=== PATIENT | male | born 1945 | race Caucasian/White ===

== ENCOUNTER 2023-01-10 07:47 | Outpatient (CLI) | payer MEDICARE ==
--- NOTE | 2023-01-10 08:39 | Ultrasound Report ---
PROCEDURE: Aorta Screening INDICATIONS: SCREENING FOR LUNG CA, SMOKING TECHNIQUE: Real time scanning was performed of the aorta and iliac arteries, with image documentatio n. COMPARISON: None. FINDINGS: Aorta: Proximal aortic diameter measures 2.7 x 2.4 cm. Mid-aorta measures 2.0 x 1.9 cm. Distal aortic diameter is 2.2 x 2.1 cm. Calcified plaque is noted throughout the infrarenal abdominal aorta . Iliac arteries: Right common iliac artery measures 1.4 x 1.4 cm. Left common iliac artery measures 1.5 x 1.3 cm. IMPRESSION: 1. No evidence for abdominal aortic aneurysm. 2. Calcified plaque throughout the infrarenal abdominal aorta. Recommended intervals for follow-up imaging of ectatic aortas and abdominal aortic aneurysms, per ACR consensus guidelines: 2.5-2.9 cm: 5 years 3.0-3.4 cm: 3 years 3.5-3.9 cm: 2 years 4.0-4.4 cm: 1 year 4.5-4.9 cm: 6 months + endovascular referral 5.0-5.5 cm: 3-6 months + endovascular referral Reviewed by: Fausto Jaramillo MD on 01/10/2023 8:37 AM PST Approved by: Fausto Jaramillo MD on 01/10/2023 8:37 AM PST Station ID: [id number]
--- NOTE | 2023-01-10 12:45 | CT Report ---
PROCEDURE: Low Dose Lung Cancer Screen INDICATIONS: SCREENING FOR LUNG CA, SMOKING TECHNIQUE: A CT scan of the chest was performed. Intravenous contrast media was not administered. Images were re corded and evaluated at appropriate window settings. Reformats: axial MIP of the chest, coronal and s agittal. For radiation dose reduction, the following was used: automated exposure control, adjustment of mA and/or kV according to patient size. COMPARISON: None. FINDINGS: Image quality: Excellent. Prior cancer history: No. Lungs and pleura: No pleural effusions. No pneumothorax. 2 mm solid nodule, lateral right upper lobe (series 3, image 107). Mediastinum: Heart size is normal. No pericardial effusion. No large vessel abnormality. No mediastin al adenopathy by size criteria. Three vessel coronary artery calcifications. Chest wall and lower neck: Thyroid is unremarkable. No axillary or supraclavicular adenopathy by size . Bones: T8 compression deformity without endplate retropulsion. Upper Abdomen: Unremarkable. IMPRESSION: Lung RAD: 2 - Benign. Recommendation: Continue annual screening in 12 Months with LDCT Non-Lung Significant Findings: Coronary Arterial Calcification - Moderate or Severe. Consider pulmono logy referral. Chronic T8 compression deformity without endplate retropulsion. Reviewed by: Basilio Carmichael on 01/10/2023 12:43 PM PST Approved by: Basilio Carmichael on 01/10/2023 12:43 PM PST Station ID: [id number]
== END 2023-01-10 07:48 | disposition home or self-care (01) ==
LOC: DI 07:47
PROVIDERS: ATTEND Nurse Practitioner Acute Care
DX: Z12.2 Encounter for screening for malignant neoplasm of respiratory organs (principal); Z13.6 Encounter for screening for cardiovascular disorders; F17.200 Nicotine dependence, unspecified, uncomplicated; R91.1 Solitary pulmonary nodule; I25.10 Atherosclerotic heart disease of native coronary artery without angina pectoris; I70.0 Atherosclerosis of aorta

== ENCOUNTER 2023-02-10 10:31 | Outpatient (CLI) | payer MEDICARE ==
[2023-02-10 14:49] LABS: BASOPHILS % (AUTO) 0.6 %; EOSINOPHILS # (AUTO) 0.2 10^3/uL (0.0-0.7); HCT - HEMATOCRIT 46.2 % (42.0-52.0); HGB - HEMOGLOBIN 15.3 g/dL (14.0-18.0); LYMPHOCYTES # (AUTO) 1.6 10^3/uL (1.5-3.5); LYMPHOCYTES % (AUTO) 32.7 %; MEAN CORPUSCULAR HEMOGLOBIN 32.9 pg (27.0-31.0); MEAN CORPUSCULAR HGB CONC 33.1 g/dL (32.0-36.0); MEAN CORPUSCULAR VOLUME 99.4 fL (80.0-94.0); MEAN PLATELET VOLUME 11.9 fL (7.4-11.4); MONOCYTES # (AUTO) 0.6 10^3/uL (0.0-1.0); MONOCYTES % (AUTO) 11.2 %; NEUTROPHILS # (AUTO) 2.6 10^3/uL (1.5-6.6); NEUTROPHILS % (AUTO) 52.3 %; PLT - PLATELET COUNT 176 10^3/uL (130-450); RED BLOOD COUNT 4.65 10^6/uL (4.70-6.10); RED CELL DISTRIBUTION WIDTH 12.2 % (12.0-15.0)
[2023-02-10 14:57] LABS: ALBUMIN 4.5 g/dL (3.2-5.5); ALBUMIN/GLOBULIN RATIO 2.1 (1.0-2.2); ALKALINE PHOSPHATASE 67 IU/L (42-121); ALT ALANINE AMINOTRANSFERASE 15 IU/L (10-60); AST ASPARTATE AMINOTRANSFERASE 14 IU/L (10-42); BILIRUBIN,TOTAL 0.4 mg/dL (0.2-1.0); BUN - BLOOD UREA NITROGEN 17 mg/dL (6-20); CALCIUM 9.7 mg/dL (8.5-10.3); CARBON DIOXIDE - CO2 33 mmol/L (21-32); CHLORIDE 100 mmol/L (101-111); CHOL/HDL RATIO 2.3 (<5.0); CHOLESTEROL 144 mg/dL; CREATININE 0.9 mg/dL (0.6-1.3); GFR - MDRD 82 (>89); GLUCOSE 105 mg/dL (74-104); HDL CHOLESTEROL 63 mg/dL; LDL CHOLESTEROL,CALCULATED 64 mg/dL; POTASSIUM 3.8 mmol/L (3.5-4.5); SODIUM 138 mmol/L (135-145); TOTAL PROTEIN 6.6 g/dL (6.4-8.9); TRIGLYCERIDES 87 mg/dL (48-352); VLDL CHOLESTEROL 17 mg/dL
[2023-02-10 15:11] LABS: THYROID STIMULATING HORMONE 2.49 uIU/mL (0.34-5.60)
[2023-02-10 15:17] LABS: FERRITIN 119.9 ng/mL (23.9-336.2)
== END 2023-02-10 10:32 | disposition home or self-care (01) ==
LOC: LAB.S 10:31
PROVIDERS: ATTEND Nurse Practitioner Acute Care
DX: G25.81 Restless legs syndrome (principal); Z13.228 Encounter for screening for other metabolic disorders; Z13.220 Encounter for screening for lipoid disorders; Z13.29 Encounter for screening for other suspected endocrine disorder; Z13.0 Encounter for screening for diseases of the blood and blood-forming organs and certain disorders involving the immune mechanism
CPT/HCPCS: 36415; 80053; 80061; 82728; 83721; 84443; 85025

== ENCOUNTER 2023-02-18 11:38 | Outpatient (CLI) | payer MEDICARE ==
--- NOTE | 2023-02-18 16:40 | XRAY Report ---
PROCEDURE: Foot 3+V BL INDICATIONS: PAIN IN LEFT FOOT TECHNIQUE: 3 views of each foot were acquired. COMPARISON: None. FINDINGS: Bones: Bilateral pes planus deformity. Severe bilateral first MTP joint hallux valgus deformity. Tra ce medial subluxation at the first tarsometatarsal joints bilaterally. No fractures or suspicious bon e lesions. Soft tissues: No suspicious soft tissue calcifications or masses. Peripheral vascular calcificatio n. IMPRESSION: 1. Severe bilateral symmetric hallux valgus deformities. 2. Bilateral pes planus deformities. 3. Peripheral vascular calcification. Reviewed by: Yesenia London MD on 02/18/2023 4:39 PM PST Approved by: Yesenia London MD on 02/18/2023 4:39 PM PST Station ID: [id number]
== END 2023-02-18 11:39 | disposition home or self-care (01) ==
LOC: DI.S 11:38
PROVIDERS: ATTEND Nurse Practitioner Acute Care
DX: M20.12 Hallux valgus (acquired), left foot (principal); M20.11 Hallux valgus (acquired), right foot; M21.42 Flat foot [pes planus] (acquired), left foot; M21.41 Flat foot [pes planus] (acquired), right foot; I73.9 Peripheral vascular disease, unspecified

== ENCOUNTER 2023-05-30 08:00 | Outpatient (CLI) | payer MEDICARE ==
--- NOTE | 2023-05-30 15:56 | XRAY Report ---
PROCEDURE: Shoulder 3 View RT INDICATIONS: RIGHT SHOULDER PAIN TECHNIQUE: 3 views of the shoulder were acquired. COMPARISON: None. FINDINGS: Bones: No fractures or dislocations. No suspicious bony lesions. Visualized ribs appear intact. Moderate to severe subacromial degenerative change. Moderate glenohumeral narrowing. Humeral head is slightly high riding. Soft tissues: No suspicious soft tissue calcifications. The visualized lungs are within normal limi ts. IMPRESSION: Acromioclavicular and glenohumeral arthritic changes. High riding humeral head which can be seen with rotator cuff pathology. Reviewed by: Wendy Ford MD on 05/30/2023 3:55 PM PDT Approved by: Wendy Ford MD on 05/30/2023 3:55 PM PDT Station ID: [id number]
== END 2023-05-30 23:59 | disposition home or self-care (01) ==
LOC: DI.WOS 08:00
PROVIDERS: ATTEND Physician Assistant Surgical
DX: M19.011 Primary osteoarthritis, right shoulder (principal)

== ENCOUNTER 2023-05-30 14:50 | Outpatient (CLI) | payer MEDICARE ==
--- NOTE | 2023-05-30 17:21 | Ultrasound Report ---
PROCEDURE: Arterial Duplex Lwr Ext BL INDICATIONS: VASCULAR CALCIFICATION TECHNIQUE: Color and pulse Doppler interrogation was performed of both lower extremity arterial systems, with im age documentation. COMPARISON: None FINDINGS: Right lower extremity: Common femoral artery: 132 cm/sec, with triphasic flow. Deep femoral artery: 50 cm/sec, with biphasic flow. Proximal superficial femoral artery: 94 cm/sec, with triphasic flow. Mid superficial femoral artery: 84 cm/sec, with triphasic flow. Distal superficial femoral artery: 69 cm/sec, with triphasic flow. Popliteal artery: 59 cm/sec, with triphasic flow. Posterior tibial artery: 71 cm/sec, with triphasic flow. Anterior tibial artery/dorsalis pedis: 107/33 cm/sec, with triphasic flow. Schwarz-scale imaging description: No significant atherosclerotic plaque. Left lower extremity: Common femoral artery: 94 cm/sec, with triphasic flow. Deep femoral artery: 48 cm/sec, with biphasic flow. Proximal superficial femoral artery: 113 cm/sec, with triphasic flow. Mid superficial femoral artery: 84 cm/sec, with triphasic flow. Distal superficial femoral artery: 75 cm/sec, with triphasic flow. Popliteal artery: 79 cm/sec, with triphasic flow. Posterior tibial artery: 80 cm/sec, with triphasic flow. Anterior tibial artery/dorsalis pedis: 76/69 cm/sec, with triphasic flow. Schwarz-scale imaging description: No significant atherosclerotic plaque. IMPRESSION: Unremarkable bilateral duplex lower extremity arterial ultrasound. Reviewed by: Daryn Cordero MD on 05/30/2023 5:20 PM PDT Approved by: Daryn Cordero MD on 05/30/2023 5:20 PM PDT Station ID: [id number]
== END 2023-05-30 14:51 | disposition home or self-care (01) ==
LOC: DI 14:50
PROVIDERS: ATTEND Nurse Practitioner Acute Care
DX: R93.89 Abnormal findings on diagnostic imaging of other specified body structures (principal)
CPT/HCPCS: 93925

== ENCOUNTER 2023-05-30 16:09 | Outpatient (CLI) | payer MEDICARE ==
[2023-05-30] MEDS: ALBUTEROL 1 PUFF INH STA (18:05)
== END 2023-05-30 16:10 | disposition home or self-care (01) ==
LOC: RT 16:09
PROVIDERS: ATTEND Nurse Practitioner Acute Care
DX: J44.9 Chronic obstructive pulmonary disease, unspecified (principal)
CPT/HCPCS: 94060; 94729